=== PATIENT | male | born 1965 | race Caucasian/White ===

== ENCOUNTER 2022-06-16 07:36 | Outpatient (CLI) | payer OTHER, SELFPAY | END 2022-06-16 07:37 | disposition home or self-care (01) | LOC: NFLDREF 06-19 10:45 | PROVIDERS: PCP Family Medicine; Referring Provider Family Medicine; Visit Provider Family Medicine | DX: E11.9 Type 2 diabetes mellitus without complications (principal); E78.5 Hyperlipidemia, unspecified; F33.9 Major depressive disorder, recurrent, unspecified; I10 Essential (primary) hypertension; E66.01 Morbid (severe) obesity due to excess calories; Z12.5 Encounter for screening for malignant neoplasm of prostate | CPT/HCPCS: 80048; 80061; 82043; 82570; 82607; 84153; 84443 ==